=== PATIENT | female | born 2000 | race Two or more races ===

== ENCOUNTER 2019-01-22 14:17 | Emergency (ER) | payer SELFPAY ==
[~2019-01-22] VITALS: Ht 167.6 cm; Wt 57.6 kg
[2019-01-22] MEDS ORDERED: IBUPROFEN 400 MG TABLET ONE (14:55)
[2019-01-22] MEDS ORDERED: IBUPROFEN 400 MG TABLET PO ONE (15:00)
[2019-01-22 15:06] LABS: APPEARANCE,URINE Clear (CLEAR); BILIRUBIN,URINE Negative (NEGATIVE); BLOOD, URINE Negative Ery/uL (NEGATIVE); COLOR,URINE Yellow (YELLOW); KETONES,URINE Negative (NEGATIVE); LEUKOCYTE ESTERASE ,URINE Negative (NEGATIVE); NITRITE, URINE Negative (NEGATIVE); PROTEIN,URINE Negative (NEGATIVE); UGLUCOSE Negative (NEGATIVE)
[2019-01-22 15:08] LABS: BACTERIA,URINE Rare /HPF (None Seen); RBC,URINE 0-2 /HPF (0-2); SQUAMOUS EPITHELIAL CELL,UR Few /HPF (None Seen); WBC,URINE 0-2 /HPF (0-3)
--- NOTE | 2019-01-22 15:38 | NUR ---
patient came in to the ER c/o lower back pain x 1 week, on room air, breathing evenly and unlabored. connected to the monitor and pulse ox. kept comfortable, will continue to monitor accordingly.
[2019-01-22 16:02] VITALS: BP 108/78
--- NOTE | 2019-01-22 16:02 | NUR ---
Patient discharged to home in stable condition. Written and verbal after care instructions given. Patient verbalizes understanding of instruction.
== END 2019-01-22 16:02 | disposition home or self-care (01) ==
LOC: ER 14:20
DX: M54.5 Low back pain (principal); F41.9 Anxiety disorder, unspecified
CPT/HCPCS: 72110; 81001; 84703; 99284; J7030; 81000-TC